=== PATIENT | male | born 1995 | race Caucasian/White ===

== ENCOUNTER 2018-03-07 16:16 | Day surgery (SDC) | payer OTHER ==
[2018-03-07] MEDS ORDERED: PROPRANOLOL HCL INJ/PF 1 MG/1 ML SDV IV ONE ×2 (18:20→18:26)
[2018-03-07] MEDS ORDERED: MIDAZOLAM 2 MG/2 ML INJ ONE ×2 (18:20→18:49)
[2018-03-07] MEDS ORDERED: ONDANSETRON HCL INJ/PF 4 MG/2 ML SDV ONE (18:20)
[2018-03-07] MEDS ORDERED: FENTANYL CITRATE INJ/PF 100 MCG/2 ML AMPUL ONE ×3 (18:20→19:46)
[2018-03-07] MEDS ORDERED: ACETAMINOPHEN 1,000 MG/100 ML RTUPB IV ONE (18:20)
[2018-03-07] MEDS ORDERED: PROPOFOL INJ 200 MG/20 ML VIAL IV ONE ×2 (18:22→18:49)
[2018-03-07] MEDS ORDERED: LIDOCAINE 1% INJ-PF (10 MG/ML) 30 ML SDV ONE (18:23)
[2018-03-07] MEDS ORDERED: MORPHINE SULFATE 10 MG/ML INJ IV PRN ×2 (18:50→19:25)
[2018-03-07] MEDS ORDERED: MEPERIDINE HCL/PF INJ 25 MG/1 ML DISP.SYRIN IV PRN (18:50)
[2018-03-07] MEDS ORDERED: FENTANYL CITRATE INJ/PF 100 MCG/2 ML AMPUL IV PRN ×3 (18:50)
[2018-03-07] MEDS ORDERED: PROMETHAZINE HCL INJ 25 MG/1 ML VIAL IV PRN ×2 (18:50)
[2018-03-07] MEDS ORDERED: DIPHENHYDRAMINE HCL 50 MG/ML VIAL IV PRN (18:50)
[2018-03-07] MEDS ORDERED: ONDANSETRON HCL INJ/PF 4 MG/2 ML SDV IV PRN ×2 (18:50→19:25)
[2018-03-07] MEDS ORDERED: CEFAZOLIN INJ 1 GM VIAL ONE (18:52)
[2018-03-07] MEDS ORDERED: HYDROCODONE/ACETAMINOPHEN 5-325 MG TABLET PO PRN (19:25)
[2018-03-07] MEDS: FENTANYL CITRATE INJ/PF 100 MCG/2 ML AMPUL ONE ×2 (19:25→19:30)
--- NOTE | 2018-03-07 19:25 | Operative Report ---
Operative Report DATE OF SURGERY: 03/07/18 PREOPERATIVE DIAGNOSIS: Chronic osteomyelitis right middle finger POSTOPERATIVE DIAGNOSIS: Same OPERATION: Irrigation and debridement right middle finger DIP joint with bone biopsy middle phalanx SURGEON: BRE STEIN ANESTHESIA: LMAC TISSUE REMOVED OR ALTERED: Bone middle phalanx sent for pathology, AFB, fungal anaerobic and aerobic COMPLICATIONS: None ESTIMATED BLOOD LOSS: minimal PROCEDURE: Indication for above procedure: 23-year-old male who was on deployment in [place] when he sustained a splinter into his middle finger around the DIP joint. Over the next following months he began having intermittent pain and swelling throughout the digit at times severe swelling and pain. Patient had outside studies including CT, MRI radiographs demonstrate possible osteomyelitis patient was sent to me for further evaluation and treatment. We discussed treatment options including operative versus nonoperative intervention along with possible need for IV antibiotics pending cultures. Patient is verbalizes understanding with the treatment plan and we will proceed with operative intervention. Procedure In Detail: Patient was seen and evaluated in the preoperative holding area. The RIGHT upper extremity was initialized and marked. Patient antibiotics were held until culture obtained then given Ancef IV. Patient was taken back to the operative room where transferred to the operative table. A surgical team debriefing was performed ensuring all instrumentation was available, the surgical procedure was discussed with possible concerns reviewed. A digital block was performed utilizing 10 mL of 1% lidocaine without epinephrine. The upper extremity was prepped with ChloraPrep and draped in a sterile fashion. A timeout was done identifying correct patient, procedure and extremity everyone in attendance agree with this and verbalized no concerns. Digital tourniquet was placed. Mid lateral skin incision was made along the radial border DIP joint. Blunt dissection was performed. Interval between the oblique retinacular ligament and terminal tendon was utilized to make a capsulotomy within the DIP joint. At this level there was evidence of synovitis and cloudy appearing fluid cultures were obtained from the fluid. Partial synovectomy was performed. Under C-arm fluoroscopy a small curette was then utilized to localize the lytic region within the middle phalanx. A cortical window was made with a curette there was no fluid/purulence within the middle phalanx normal bone integrity appreciated. The bone was then sent to pathology a portion sent to microbiology. Wound was then copiously irrigated with normal saline. Tourniquet was then removed any peripheral bleeding was controlled with bipolar cautery. Wound was dressed with Xeroform 4 x 4's and patient placed in a loosely applied Coban. Sponge counts, instrument counts, needle counts counts were correct. Patient was then awoken from anesthesia. Transferred from the operating room table to the operating room stretcher. There was no intraoperative complications patient tolerated procedure well stable to PACU. Postoperative plan: Patient will follow-up for wound check in 2 weeks. Given the cloudy amount of fluid I am concerned of possible underlying septic arthritis or chronic osteomyelitis patient will likely require 4 weeks of IV antibiotics will determine appropriate IV antibiotics once cultures return will set him up for outpatient PICC line at the [facility].
--- NOTE | 2018-03-07 19:25 | Discharge Summary ---
Discharge Summary (SDC) - Discharge Final Diagnosis: Chronic osteomyelitis right middle finger Date of Surgery: 03/07/18 Discharge Date: 03/07/18 Condition: Good Treatment or Instructions: Schedule Follow Up w/ Dr. Miguel Moody @ [facility] to be seen in 10-14 days or as scheduled [place]: [place]: [place]: May remove dressing on postop day #3, keep incision covered and dry. Ice and elevate May begin finger range of motion attempting to make full fist. Stool softener of choice when on pain medication. USE OF [id number] IBUPROFEN: Ibuprofen (Advil, Nuprin, Medipren, Motrin IB) is a medication for fever and pain control. In addition, it has anti- inflammatory effects which may be beneficial, especially in the treatment of injuries. It's best to take ibuprofen with food. Persons with ulcer disease or allergy to aspirin should notify their physician of this before taking ibuprofen. Ibuprofen can be given every four to six hours, for a total of four doses daily. Age Pain or fever dose Antiinflammatory dose 6-8 yr 200 mg (1 tab) 200 mg (1 tab) 9-11 yr 200 mg (1 tab) 200-400 mg (1-2 tab) 11-14 yr 200-400 mg (1-2 tab) 400 mg (2 tab) 15-adult 400 mg (2 tab) 600 mg (3 tab) ORAL NARCOTIC MEDICATION: You have been given a prescription for pain control. This medication is a narcotic. It's best taken with food, as nausea can result if taken on an empty stomach. Don't operate machinery or drive within six hours of taking this medication. Do not combine this medicine with alcohol, or with any medication which can cause sedation (such as cold tablets or sleeping pills) unless you get permission from the physician. Narcotics tend to cause constipation. If possible, drink plenty of fluids and eat a diet high in fiber and fruits. Please be aware that prescription narcotics also have the potential for abuse. People become addicted to these medications because of the general sense of wellbeing that they induce. This feeling along with a significant reduction in tension, anxiety, and aggression provides a stimulating seductive quality to these drugs. Once your pain is under control, we encourage you to discard your unused narcotics. Prescriptions: Hydrocodone/Acetaminophen [Loving 5-325 mg Tablet] 1 tab PO Q6 PRN #20 tablet PRN Reason: Discharge Diet: As Tolerated Respiratory Treatments at Home: Deep Breathing/Coughing Discharge Activity: No Lifting Over 10 Pounds, No Lifting/Push/Pulling Report the Following to Your Physician Immediately: Fever over 101 Degrees, Unusual Bleeding, Redness, Swelling, Warmth, Increased Soreness
[2018-03-07] MEDS: HYDROMORPHONE HCL INJ/PF 2 MG/ML AMPULE ONE ×2 (19:41→19:47)
[2018-03-07 21:31] VITALS: BP 105/56
--- NOTE | 2018-03-08 10:24 | RADIOLOGY REPORT (SQ) ---
EXAM DESCRIPTION: NO CHG FLUORO; FINGER RIGHT COMPLETED DATE/TIME: 03/07/2018 7:48 pm REASON FOR STUDY: BONE BIOPSY 3RD DIGIT COMPARISON: None. FINDINGS: 11 seconds fluoro time. 2 images obtained during reported bone biopsy, limited field of view. Appears to be long finger. Co rrelate with operative note. TECHNICAL DOCUMENTATION: JOB ID: [id number] Reading location - IP/workstation name: [email or web address]
--- NOTE | 2018-03-08 10:24 | RADIOLOGY REPORT (SQ) ---
EXAM DESCRIPTION: NO CHG FLUORO; FINGER RIGHT COMPLETED DATE/TIME: 03/07/2018 7:48 pm REASON FOR STUDY: BONE BIOPSY 3RD DIGIT COMPARISON: None. FINDINGS: 11 seconds fluoro time. 2 images obtained during reported bone biopsy, limited field of view. Appears to be long finger. Co rrelate with operative note. TECHNICAL DOCUMENTATION: JOB ID: [id number] Reading location - IP/workstation name: [email or web address]
== END 2018-03-07 21:25 | disposition home or self-care (01) ==
LOC: OROUT 16:16
PROVIDERS: ATTEND Orthopaedic Surgery
DX: M86.641 Other chronic osteomyelitis, right hand (principal); R93.7 Abnormal findings on diagnostic imaging of other parts of musculoskeletal system; M79.644 Pain in right finger(s)
CPT/HCPCS: 87070; 87205; 87075; 87206; 87116; 87101; 87015; 88305 ×2; 88311; 73140; 11044; J2250; J0690; J3010; J3490; J1170; J1800; J2405; J2704; J0131; 01830